=== PATIENT | male | born 1955 | race Caucasian/White ===

== ENCOUNTER 2016-12-07 11:02 | Observation (INO) | payer OTHER ==
[~2016-12-07] VITALS: Ht 172.7 cm; Wt 70.0 kg
[2016-12-07] VITALS (9 sets, daily range): BP systolic 103–158; BP diastolic 64–86; PULSE 55–71; RESP 18–20; TEMP 97.2–98.2; O2SAT 95–99
[2016-12-07] MEDS ORDERED: SODIUM CHLORIDE 0.9% FLUSH 10 ML FLUSH IVF PRN (11:15)
[2016-12-07] MEDS ORDERED: ASPIRIN 81 MG CHEW TAB PO ONE (11:15)
[2016-12-07] MEDS ORDERED: ASPI81CH CHEW (11:15)
[2016-12-07] MEDS ORDERED: METF500T PO (11:15)
[2016-12-07] MEDS ORDERED: UNK HTN (11:16)
[2016-12-07] MEDS ORDERED: UNK CHOLESTEROL (11:16)
[2016-12-07] MEDS ORDERED: VITA100021 SL (11:16)
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
[2016-12-07] MEDS: NITROGLYCERIN 0.4 MG SL 25 TABS/BTL SL SCH ×3 (11:23→11:39)
[2016-12-07 11:31] LABS: BASOPHIL % 0.5 % (0.0-2.0); EOSINOPHIL # 0.2 TH/MM3 (0-0.4); EOSINOPHIL % 2.8 % (0.0-4.0); HEMATOCRIT 42.8 % (39.0-51.0); HEMO FLAGS DIFF FINAL; LYMPH % 36.8 % (9.0-44.0); LYMPHOCYTE # 2.9 TH/MM3 (1.0-4.8); MEAN CELL VOLUME 83.4 FL (80.0-100.0); MEAN CORPUSCULAR HGB CONC 33.5 % (32.0-36.0); MONO % 9.5 % (0.0-8.0); NEUT % 50.4 % (16.0-70.0); PLATELET COUNT 329 TH/MM3 (150-450); RED BLOOD COUNT 5.13 MIL/MM3 (4.50-5.90); RED CELL DISTRIBUTION WIDTH 14.2 % (11.6-17.2)
--- NOTE | 2016-12-07 11:38 | RADRPT ---
EXAM DATE/TIME: 12/07/2016 11:33 [facility] COMPARISON: No previous studies available for comparison. INDICATIONS : Chest pain today. MEDICAL HISTORY : Hypertension. SURGICAL HISTORY : None. ENCOUNTER: Initial ACUITY: 1 day PAIN SCORE: 6/10 LOCATION: Bilateral chest FINDINGS: A single view of the chest demonstrates the lungs to be symmetrically aerated without evidence of mas s, infiltrate or effusion. The cardiomediastinal contours are unremarkable. Osseous structures are intact. CONCLUSION: No acute disease. Edu Akhtar MD FACR on December 07, 2016 at 11:36 Board Certified Radiologist. This report was verified electronically.
[2016-12-07 11:41] LABS: APTT (PATIENT) 23.3 SEC (24.3-30.1); INTERNATIONAL NORMALIZED RATIO 0.9 RATIO; PROTHROMBIN TIME - PATIENT 10.4 SEC (9.8-11.6)
[2016-12-07 11:58] LABS: ANION GAP 9 MEQ/L (5-15); BICARBONATE 24.7 MEQ/L (21.0-32.0); BLOOD UREA NITROGEN 18 MG/DL (7-18); CHLORIDE 106 MEQ/L (98-107); GLOMERULAR FILTRATION RATE 70 ML/MIN (>89); MAGNESIUM 2.4 MG/DL (1.5-2.5); POTASSIUM 4.3 MEQ/L (3.5-5.1); SODIUM (NA) 140 MEQ/L (136-145)
[2016-12-07 12:06] LABS: CREATINE KINASE 81 U/L (39-308)
[2016-12-07] MEDS ORDERED: NITROGLYCERIN 0.4 MG SL 25 TABS/BTL SL PRN (12:45)
--- NOTE | 2016-12-07 12:59 | PD ---
Data Data Last Documented VS Vital Signs Date Time Temp Pulse Resp B/P Pulse Ox O2 Delivery O2 Flow Rate FiO2 12/07/16 12:00 69 20 106/64 95 Nasal Cannula 2 12/07/16 11:07 98.2 Orders Electrocardiogram (12/07/16 11:15) Basic Metabolic Panel (Bmp) (12/07/16 11:15) Ckmb (Isoenzyme) Profile (12/07/16 11:15) Complete Blood Count With Diff (12/07/16 11:15) Magnesium (Mg) (12/07/16 11:15) Prothrombin Time / Inr (Pt) (12/07/16 11:15) Act Partial Throm Time (Ptt) (12/07/16 11:15) Troponin I (12/07/16 11:15) Chest, Single Ap (12/07/16 11:15) Ecg Monitoring (12/07/16 11:15) Bilateral Bp Monitoring (12/07/16 11:15) Iv Access Insert/Monitor (12/07/16 11:15) Oximetry (12/07/16 11:15) Oxygen Administration (12/07/16 11:15) Aspirin Chew (Aspirin Chew) (12/07/16 11:15) Sodium Chloride 0.9% Flush (Ns Flush) (12/07/16 11:15) Nitroglycerin Sl (Nitrostat Sl) (12/07/16 11:15) Admit Order (Ed Use Only) (12/07/16 12:10) Labs Laboratory Tests Test 12/07/16 11:15 White Blood Count 8.0 TH/MM3 Red Blood Count 5.13 MIL/MM3 Hemoglobin 14.4 GM/DL Hematocrit 42.8 % Mean Corpuscular Volume 83.4 FL Mean Corpuscular Hemoglobin 28.0 PG Mean Corpuscular Hemoglobin 33.5 % Concent Red Cell Distribution Width 14.2 % Platelet Count 329 TH/MM3 Mean Platelet Volume 8.0 FL Neutrophils (%) (Auto) 50.4 % Lymphocytes (%) (Auto) 36.8 % Monocytes (%) (Auto) 9.5 % Eosinophils (%) (Auto) 2.8 % Basophils (%) (Auto) 0.5 % Neutrophils # (Auto) 4.0 TH/MM3 Lymphocytes # (Auto) 2.9 TH/MM3 Monocytes # (Auto) 0.8 TH/MM3 Eosinophils # (Auto) 0.2 TH/MM3 Basophils # (Auto) 0.0 TH/MM3 CBC Comment DIFF FINAL Differential Comment Prothrombin Time 10.4 SEC Prothromb Time International 0.9 RATIO Ratio Activated Partial 23.3 SEC Thromboplast Time Sodium Level 140 MEQ/L Potassium Level 4.3 MEQ/L Chloride Level 106 MEQ/L Carbon Dioxide Level 24.7 MEQ/L Anion Gap 9 MEQ/L Blood Urea Nitrogen 18 MG/DL Creatinine 1.08 MG/DL Estimat Glomerular Filtration 70 ML/MIN Rate Random Glucose 103 MG/DL Calcium Level 9.8 MG/DL Magnesium Level 2.4 MG/DL Total Creatine Kinase 81 U/L Troponin I LESS THAN 0.02 NG/ML MDM Supervised Visit with ARMOND: Yes Narrative Course The history, exam, and medical decision-making in the associated midlevel provider note were completed with my assistance. I reviewed and agree with the findings presented. I attest that I had a [id number] encounter with the patient on the same day, and personally performed and documented my assessment and findings in the medical record. *My assessment and Findings: This is a 61-year-old male who presents to the emergency department with chest discomfort with some diaphoresis and shortness of breath. EKG is nonischemic. Labs are initially reassuring. Patient will be placed the chest pain center for observation and serial cardiac. I don't suspect an alternate emergent etiology of the patient's chest pain based on his description of symptoms. Diagnosis Primary Impression: Chest pain Qualified Code: R07.9 - Chest pain, unspecified type Tarah Montes De Oca MD Dec 07, 2016 12:59
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
[2016-12-07] MEDS ORDERED: ACETAMINOPHEN 500 MG CPLT PO PRN (14:00)
[2016-12-07] MEDS ORDERED: ONDANSETRON HCL 4 MG/2 ML VIAL IV PRN (14:00)
[2016-12-07 15:14] LABS: CREATINE KINASE 66 U/L (39-308)
--- NOTE | 2016-12-07 16:01 | EKG ---
Date Performed: 12/07/2016 Time Performed: 11:09:57 PTAGE: 61 years EKG: Sinus rhythm NORMAL ECG NO PREVIOUS TRACING DOCTOR: Chico Reyes Interpretating Date/Time 12/07/2016 16:01:06
--- NOTE | 2016-12-07 17:19 | HHI.DCPOC ---
Discharge Care Plan Diagnosis: (1) Musculoskeletal chest pain (2) Type 2 diabetes mellitus (3) Hypertension (4) Situational stress Goals to Promote Your Health * To prevent worsening of your condition and complications * To maintain your health at the optimal level Directions to Meet Your Goals Take your medications as prescribed Follow your dietary instruction Follow activity as directed Keep your appointments as scheduled Take your immunizations and boosters as scheduled If your symptoms worsen call your PCP, if no PCP go to Urgent Care Center or Emergency Room Smoking is Dangerous to Your Health. Avoid second hand smoke Call the 24-hour hour crisis hotline for domestic abuse at Anushka Vázquez Dec 07, 2016 17:19
[2016-12-07] MEDS ORDERED: NAPR500T PO ×2 (17:21)
[2016-12-07] MEDS ORDERED: SODIUM CHLORIDE 0.9% FLUSH 10 ML FLUSH IV FLUSH SCH (21:00)
--- NOTE | 2016-12-08 07:35 | EKG ---
Date Performed: 12/07/2016 Time Performed: 14:26:49 PTAGE: 61 years EKG: SINUS BRADYCARDIA BORDERLINE ECG PREVIOUS TRACING : 12/07/2016 11.09 Since previous tracing, no significant change noted DOCTOR: Alie Pritchett Interpretating Date/Time 12/08/2016 07:33:47
--- NOTE | 2016-12-08 07:35 | TR ---
Date Performed: 12/07/2016 Time Performed: 16:30:17 DOCTOR: Alie Pritchett DRUG LIST: CLINICAL HISTORY: REASON FOR TEST: Chest pain REASON FOR ENDING: OBSERVATION: CONCLUSION: Keny protocol completed. Stopped sec to exceeding target heart rate and leg fatigue . Maximum BM=743 Target HR Achieved=89.0 Maximum UN=009/110 Total Exercise Time=9:25. No reprod chest pain. No ectopy. No st t segment changes to sugg ischemia. Great exercise tolerance. Normal bp respo nse. Recovery quick and unremarkable. COMMENTS:
[2016-12-08] MEDS ORDERED: ASPIRIN 325 MG TAB PO SCH (09:00)
== END 2016-12-07 18:44 | disposition home or self-care (01) ==
LOC: NEPE 11:02 → NEDA 12:11 → NEPHCDU 14:03
PROVIDERS: ADMIT Internal Medicine Cardiovascular Disease; ATTEND Internal Medicine Cardiovascular Disease
DX: R07.89 Other chest pain (principal); I10 Essential (primary) hypertension; F43.9 Reaction to severe stress, unspecified; E78.5 Hyperlipidemia, unspecified; E78.00 Pure hypercholesterolemia, unspecified; Z79.82 Long term (current) use of aspirin; Z87.891 Personal history of nicotine dependence; Z82.49 Family history of ischemic heart disease and other diseases of the circulatory system
CPT/HCPCS: 71010; 80048; 82550; 83735; 84484; 85025; 85610; 85730; 93005; 93017; 99285; G0378

== ENCOUNTER 2017-10-08 18:53 | Emergency (ER) | payer OTHER ==
[~2017-10-08] VITALS: Ht 182.9 cm; Wt 86.1 kg
[~2017-10-08 18:53] MED LIST: ASPI-516 CHEW; METF500T PO; NAPR500T2 PO; UNK CHOLESTEROL; UNK HTN; VITA100021 SL
[2017-10-08 18:56] VITALS: BP 130/67; PULSE 76; RESP 18; TEMP 98.7; O2SAT 94
[2017-10-08] MEDS ORDERED: ATEN50TA PO (19:23)
[2017-10-08] MEDS ORDERED: ESCI10TA PO (19:23)
[2017-10-08] MEDS ORDERED: PROSCAP2 (19:23)
[2017-10-08] MEDS ORDERED: CLON0.1T PO (19:23)
[2017-10-08] MEDS ORDERED: SIMV40TA PO (19:23)
[2017-10-08] MEDS ORDERED: FENO145T2 PO (19:23)
[2017-10-08] MEDS ORDERED: CHOL5000 PO (19:23)
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
[2017-10-08 19:52] LABS: AUTOMATED NEUTROPHIL # 4.1 TH/MM3 (1.8-7.7); BASOPHIL # 0.1 TH/MM3 (0-0.2); BASOPHIL % 1.5 % (0.0-2.0); EOSINOPHIL # 0.3 TH/MM3 (0-0.4); EOSINOPHIL % 3.9 % (0.0-4.0); HEMATOCRIT 39.2 % (39.0-51.0); HEMOGLOBIN 13.1 GM/DL (13.0-17.0); LYMPH % 31.9 % (9.0-44.0); LYMPHOCYTE # 2.4 TH/MM3 (1.0-4.8); MEAN CORPUSCULAR HEMOGLOBIN 28.5 PG (27.0-34.0); MEAN CORPUSCULAR HGB CONC 33.5 % (32.0-36.0); MEAN PLATELET VOLUME 7.8 FL (7.0-11.0); MONOCYTE # 0.6 TH/MM3 (0-0.9); NEUT % 54.7 % (16.0-70.0); PLATELET COUNT 303 TH/MM3 (150-450); RED BLOOD COUNT 4.61 MIL/MM3 (4.50-5.90); RED CELL DISTRIBUTION WIDTH 13.5 % (11.6-17.2); WHITE BLOOD COUNT 7.5 TH/MM3 (4.0-11.0)
[2017-10-08 20:04] LABS: CALCIUM 8.8 MG/DL (8.5-10.1)
[2017-10-08 20:05] LABS: BICARBONATE 28.5 MEQ/L (21.0-32.0)
[2017-10-08 20:07] LABS: PROTHROMBIN TIME - PATIENT 10.2 SEC (9.8-11.6)
[2017-10-08 20:08] LABS: CREATININE 0.99 MG/DL (0.60-1.30)
--- NOTE | 2017-10-08 20:46 | RADRPT ---
EXAM DATE/TIME: 10/08/2017 20:08 [facility] COMPARISON: No previous studies available for comparison. INDICATIONS : Bilateral leg pain. MEDICAL HISTORY : HTN. SURGICAL HISTORY : None. ENCOUNTER: Initial ACUITY: 3 days PAIN SCORE: 6/10 LOCATION: Bilateral legs. TECHNIQUE: Venous ultrasound of the left and right leg was performed from the inguinal ligament to the proximal calf. Real-time, color Doppler and spectral tracing, compression and augmentation techniques were us ed. FINDINGS: RIGHT LEG: There are abnormal intraluminal echoes with lack of normal compression and blood flow within the grea ter saphenous vein involving the entire thigh. Otherwise, there are is normal compressibility of the deep venous system from the inguinal region to the proximal calf. No echogenic clot is seen in the l umen of the common femoral, femoral, popliteal, and posterior tibial veins. There is a normal respon se of the venous system to proximal and distal augmentation and respiration. LEFT LEG: There are abnormal intraluminal echoes with lack of normal compression and blood flow within the grea ter saphenous vein. This thrombus extends from the mid thigh distally to the mid leg. Otherwise, ther e is normal compressibility of the deep venous system from the inguinal region to the proximal calf. No echogenic clot is seen in the lumen of the common femoral, femoral, popliteal, and posterior tibi al veins. There is a normal response of the venous system to proximal and distal augmentation and re spiration. CONCLUSION: 1. There is superficial venous thrombosis within the greater saphenous veins bilaterally. 2. The deep veins of the lower extremities bilaterally are patent. Jonnathan Poole MD on October 08, 2017 at 20:41 Board Certified Radiologist. This report was verified electronically.
[2017-10-08] MEDS ORDERED: IBUP-232 PO (21:01)
[2017-10-08 21:14] VITALS: BP 138/74
== END 2017-10-08 21:16 | disposition home or self-care (01) ==
LOC: PHED 18:53
DX: I82.813 Embolism and thrombosis of superficial veins of lower extremities, bilateral (principal); F32.9 Major depressive disorder, single episode, unspecified; I10 Essential (primary) hypertension; E78.00 Pure hypercholesterolemia, unspecified; E11.9 Type 2 diabetes mellitus without complications; Z79.82 Long term (current) use of aspirin; Z79.899 Other long term (current) drug therapy
CPT/HCPCS: 80048; 85025; 85610; 85730; 93970; 99284